=== PATIENT | male | born 1970 | race American Indian/Alaskan Native ===

== ENCOUNTER 2016-03-19 08:01 | Observation (INO) | payer MEDICARE ==
[2016-03-19 09:07] LABS: Basophils % (Auto) 1.3 % (0.0-1.8); Eosinophils % (Auto) 6.7 % (0.0-4.3); Hemoglobin 14.1 gm/dl (11.8-15.2); Mean Corpuscular HGB Conc 34 % (32-34); Mean Corpuscular Hemoglobin 29 pg (28-32); Mean Corpuscular Volume 86 fl (84-94); Platelet Count 266 K/mm3 (140-440); Red Blood Count 4.78 M/mm3 (3.65-5.03); Red Cell Distribution Width 13.3 % (13.2-15.2); White Blood Count 10.6 K/mm3 (4.5-11.0)
[2016-03-19 09:19] LABS: INR 0.9 (0.87-1.13)
[2016-03-19 09:23] LABS: Anion Gap 17 mmol/L; BUN/Creatinine Ratio 12.85; Blood Urea Nitrogen 9 mg/dL (9-20); Calcium 9.1 mg/dL (8.4-10.2); Carbon Dioxide 25 mmol/L (22-30); Glucose 333 mg/dL (75-100); Potassium 4.3 mmol/L (3.6-5.0); Sodium 133 mmol/L (137-145)
[2016-03-19] MEDS ORDERED: ECOTRIN PO ONE (10:15)
[2016-03-19] MEDS ORDERED: NACL 0.9% 500 ML 500 ML IV SCH (10:30)
[2016-03-19] MEDS ORDERED: HEPARIN/NS 5000 UNIT/500ML(CATH LAB) 1,000 ML IR ONE ×2 (10:54→13:36)
[2016-03-19] MEDS ORDERED: HEPARIN 10,000 UNITS/10 ML ONE ×2 (10:54→13:36)
[2016-03-19] MEDS: SUBLIMAZE ONE ×4 (11:03→14:02)
[2016-03-19] MEDS: VERSED ONE ×4 (11:03→14:02)
[2016-03-19] MEDS: XYLOCAINE 2% INFILTRATI ONE ×3 (11:03→13:58)
[2016-03-19] MEDS ORDERED: PLAVIX ONE (11:22)
[2016-03-19] MEDS ORDERED: ALUM-MAG HYDROX-SIMETH 200-200-20MG/5ML ONE (11:22)
[2016-03-19] MEDS ORDERED: HEPARIN/ 0.45% NACL-25,000 UNIT/500 ML 500 ML ONE (11:26)
[2016-03-19] MEDS ORDERED: XYLOCAINE 2% INFILTRATI ONE (13:36)
[2016-03-19] MEDS ORDERED: NITROGLYCERIN SYRINGE 3 ML ONE (13:47)
[2016-03-19] MEDS ORDERED: SUBLIMAZE ONE (14:04)
[2016-03-19] MEDS ORDERED: VERSED ONE (14:04)
[2016-03-19] MEDS: HEPARIN 10,000 UNITS/10 ML ONE ×2 (14:10→14:29)
[2016-03-19] MEDS ORDERED: ZOFRAN IV PRN (14:31)
[2016-03-19] MEDS ORDERED: ULTRAM PO PRN (14:31)
[2016-03-19] MEDS ORDERED: AMBIEN PO PRN (14:31)
[2016-03-19] MEDS ORDERED: SENOKOT PO PRN (14:31)
[2016-03-19] MEDS ORDERED: TYLENOL PO PRN (14:31)
[2016-03-19] MEDS ORDERED: CATAPRES PO PRN (14:36)
--- NOTE | 2016-03-19 14:40 | Event Note ---
Date: 03/19/16 Successful outpatient cath followed by PCI of distal RCA. Admit overnight post PCI, for discharge tomorrow. On discharge: Plavix, Metoprolol and Imdur will be added to home meds.
--- NOTE | 2016-03-19 14:46 | Discharge Summary ---
Short Stay Discharge Plan Activity: advance as tolerated Weight Bearing Status: Partial Weight Bearing Diet: low fat, low cholesterol, low salt, diabetic Wound: keep clean and dry Special Instructions: no heavy lifting (3 days), hold Metformin (48 hrs) Follow up with: DIONISIO BLACKBURN MD [Primary Care Provider] - 7 Days HANG PITTMAN MD [Staff Physician] - 7 Days Prescriptions: Clopidogrel [Plavix] 75 mg PO QDAY #30 tablet ISOSORBIDE MONOnitrate [Imdur ER] 30 mg PO QDAY #30 tablet Metoprolol [Lopressor TAB] 25 mg PO BID #60 tablet
[2016-03-19] MEDS ORDERED: NACL 0.9% 1000 ML 1,000 ML IV SCH (16:00)
--- NOTE | 2016-03-19 16:26 | Cardiac Catherization Report ---
LEFT HEART CATHETERIZATION ORDERING PHYSICIAN: Luz Mccollum MD INDICATION FOR PROCEDURE: Abnormal myocardial perfusion scan, DOT clearance. PROCEDURES PERFORMED: 1. Selective left and right coronary angiography. 2. Left ventriculography. 3. Angiography of the saphenous vein graft to the diagonal artery, saphenous vein graft to the obtuse marginal, and MCCORD graft to the LAD. DESCRIPTION OF PROCEDURE: After obtaining written consent, the patient was draped using sterile technique. A 2% lidocaine was injected into the right groin. A 5-Thai vascular sheath was inserted into the right common femoral artery. A 5-Thai JL4 catheter was used to selectively engage the left coronary artery. A 5-Thai JR4 catheter was used to selectively engage the right coronary artery. A 5-Thai JR4 catheter was used to selectively engage the saphenous vein graft to the obtuse marginal, the saphenous vein graft to the diagonal artery, and the MCCORD graft to the LAD. No complications occurred during the procedure. ESTIMATED BLOOD LOSS: Minimal. SPECIMEN REMOVED: None. FINDINGS: HEMODYNAMICS: Aortic pressure was 142/86. LV systolic pressure was 135 mmHg. LVEDP was measured at 19 mmHg. There was no significant gradient noted across the left ventricular outflow tract. CARDIAC STRUCTURES: The left ventricle is normal in size and systolic function with an ejection fraction estimated at 55%. CORONARY ANATOMY: 1. This is a right dominant circulation. 2. The left main has evidence of a distal 90% stenosis. 3. There is 100% stenosis of the ostium of the LAD. 4. There is 90% stenosis of the ostium of left circumflex artery. The distal left circumflex artery is a small caliber vessel. 5. The right coronary artery is a dominant vessel. The right coronary artery was not bypassed. There is evidence of a 90% focal stenosis of the distal right coronary artery. The posterolateral ventricular branch is a small branch. 6. The saphenous vein graft to the diagonal artery is patent with excellent vessel run-off. 7. The saphenous vein graft to the obtuse marginal is patent with excellent vessel run-off. 8. The MCCORD graft to the LAD is patent with excellent vessel run-off. IMPRESSION: 1. Significant [place] vessel stenosis with a focal 90% lesion noted in a previously not bypassed distal right coronary artery. This corresponds to the patient's abnormality noted on the stress test showing an inferior wall ischemia. 2. Patent saphenous vein graft to the obtuse marginal, patent saphenous vein graft to the diagonal artery, and patent MCCORD graft to the LAD with excellent vessel run-off. 3. Severe [place] vessel disease involving the LAD and the left circumflex artery. 4. Normal left ventricular size and systolic function. 5. LVEDP measured at 90 mmHg. RECOMMENDATIONS: Proceed with PCI to the distal right coronary artery. [facility]# [id number] MONICA/HAO
--- NOTE | 2016-03-19 18:20 | Cardiac Catherization Report ---
CORONARY ANGIOPLASTY REASON FOR PROCEDURE: The patient is a 45-year-old man with coronary artery disease, status post 3-way coronary artery bypass surgery in 2011. He had an outpatient thallium stress test that was abnormal, prompting a cardiac catheterization done earlier today. Cardiac catheterization revealed all his 3-way bypass grafts to be patent, the left internal mammary artery graft to the LAD, saphenous vein graft to the diagonal branch, and saphenous vein graft to the circumflex system. The [place] right coronary artery, which was not previously bypassed, contained a hazy, 95-99% stenosis in its distal AV groove segment, just before the origin of a large posterior left ventricle branch. He was referred for coronary angioplasty of the distal right coronary artery. PROCEDURE: The patient was prepped and draped in a sterile fashion after informed consent. A 6-Azeri sheath was exchanged into the right femoral artery, replacing the 5-Azeri sheath from the diagnostic procedure. We selected a #4 right Monster guiding catheter and advanced to the right coronary ostium. Preintervention angiograms of the right coronary artery were taken. A 0.014 inch Drug Abuse Program Coordinator 50 guidewire was then introduced into the vessel, successfully across the stenotic lesion. We then predilated the stenosis, using a 2.5 mm balloon catheter. Following this, a 2.75 x 12 mm Resolute drug-eluting stent was then deployed across the lesional segment and inflated to optimal pressures. Following stenting, the catheters and the wires were removed, post-intervention angiograms revealed an excellent angiographic result, 0 residual stenosis, and JOVANI 3 flow distal to the lesional segment. The procedure was well tolerated by the patient and have no complications. CONCLUSION: Successful angioplasty and stenting of the distal right coronary artery. A 99% stenosis was treated using a 2.75 x 12 mm drug-eluting stent. Excellent angiographic result and 0 residual stenosis. JOB# [id number] CATHERINE/HAO
[2016-03-19] MEDS: IMDUR PO SCH (22:14)
[2016-03-19] MEDS: LOPRESSOR PO SCH (22:14)
[2016-03-20] MEDS: GLUCOTROL XL PO SCH ×2 (01:13→10:00)
[2016-03-20 06:49] LABS: Basophils % (Auto) 0.3 % (0.0-1.8); Hematocrit 37.4 % (35.5-45.6); Hemoglobin 12.6 gm/dl (11.8-15.2); Mean Corpuscular HGB Conc 34 % (32-34); Mean Corpuscular Hemoglobin 29 pg (28-32); Mean Corpuscular Volume 87 fl (84-94); Platelet Count 270 K/mm3 (140-440); Red Blood Count 4.31 M/mm3 (3.65-5.03); Red Cell Distribution Width 13.3 % (13.2-15.2); White Blood Count 16.4 K/mm3 (4.5-11.0)
[2016-03-20 07:11] LABS: Creatine Kinase MB 2.8 ng/mL (0.0-4.0)
[2016-03-20 07:13] LABS: Anion Gap 19 mmol/L; Blood Urea Nitrogen 16 mg/dL (9-20); Calcium 8.3 mg/dL (8.4-10.2); Carbon Dioxide 23 mmol/L (22-30); Chloride 97.8 mmol/L (98-107); Creatine Kinase 114 units/L (55-170); Glucose 312 mg/dL (75-100); Potassium 4.4 mmol/L (3.6-5.0); Sodium 135 mmol/L (137-145)
[2016-03-20 09:31] VITALS: BP 118/67
[2016-03-20] MEDS: IMDUR PO SCH (09:36)
[2016-03-20] MEDS: LOPRESSOR PO SCH (09:38)
[2016-03-20] MEDS ORDERED: BENAZEPRIL PO SCH (10:00)
[2016-03-20] MEDS ORDERED: BABY ASPIRIN PO SCH (10:00)
[2016-03-20] MEDS ORDERED: ZESTRIL PO SCH (10:00)
[2016-03-20] MEDS ORDERED: AMLODIPINE BESYLATE PO SCH (10:00)
[2016-03-20] MEDS ORDERED: PLAVIX PO SCH (10:00)
[2016-03-20] MEDS ORDERED: NORVASC PO SCH (10:00)
--- NOTE | 2016-03-20 10:34 | XRay Report ---
AP CHEST : 03/20/16 CLINICAL: Post PCI COMPARISON:11/13/15 FINDINGS: Normal heart and pulmonary vessels.Median sternotomy wires. The lungs are normally expanded and clear. The bones and soft tissues are unremarkable. IMPRESSION: No acute cardiopulmonary process.
--- NOTE | 2016-03-20 11:30 | Progress Note ---
Assessment and Plan CAD s/p PCI Plan: DC home today with medical therapy including DAPT Subjective Date of service: 03/20/16 Interval history: No further chest pain. No cardiac complaints. Objective Vital Signs Temp Pulse Pulse Resp BP BP Pulse Ox 03/20/16 09:38 88 118/67 03/20/16 09:37 88 118/67 03/20/16 09:36 88 118/67 03/20/16 09:30 98.4 F 81 18 118/67 96 03/20/16 07:35 98 03/20/16 07:00 81 03/20/16 05:48 98.1 F 87 20 117/59 94 03/20/16 01:02 98.3 F 88 20 116/66 93 03/19/16 23:12 82 03/19/16 22:30 95 03/19/16 21:48 98.2 F 95 H 20 127/76 94 03/19/16 17:54 97.0 F L 94 H 18 97 03/19/16 15:15 95 H 16 117/75 94 03/19/16 14:45 91 H 20 117/73 96 03/19/16 14:29 85 20 112/69 96 03/19/16 13:00 87 20 136/86 95 03/19/16 12:30 88 17 143/84 94 03/19/16 12:15 86 19 139/85 94 03/19/16 12:00 84 20 145/87 96 03/19/16 11:47 98.2 F 86 18 139/88 94 - Physical Examination General: No Apparent Distress Neck: Positive: neck supple Cardiac: Positive: Reg Rate and Rhythm Lungs: Positive: clear to auscultation Neuro: Positive: Grossly Intact Abdomen: Positive: Soft Incision: Cardiac Cath Site (no bleeding or hematoma) Extremities: Absent: edema - Labs and Meds Cardiac Enzymes 03/20/16 Range/Units 06:08 CK-MB (CK-2) 2.8 (0.0-4.0) ng/mL CBC 03/20/16 Range/Units 06:08 WBC 16.4 H (4.5-11.0) K/mm3 RBC 4.31 (3.65-5.03) M/mm3 Hgb 12.6 (11.8-15.2) gm/dl Hct 37.4 (35.5-45.6) % Plt Count 270 (140-440) K/mm3 Lymph # 1.6 (1.2-5.4) K/mm3 [place] # 0.6 (0.0-0.8) K/mm3 Eos # 0.0 (0.0-0.4) K/mm3 Baso # 0.1 (0.0-0.1) K/mm3 Comprehensive Metabolic Panel 03/20/16 Range/Units 06:08 Sodium 135 L (137-145) mmol/L Potassium 4.4 (3.6-5.0) mmol/L Chloride 97.8 L (98-107) mmol/L Carbon Dioxide 23 (22-30) mmol/L BUN 16 (9-20) mg/dL Creatinine 0.8 (0.8-1.5) mg/dL Glucose 312 H (75-100) mg/dL Calcium 8.3 L (8.4-10.2) mg/dL
== END 2016-03-20 11:00 | disposition home or self-care (01) ==
LOC: OPU 08:01 → 4A 14:31
PROVIDERS: ADMIT Internal Medicine Cardiovascular Disease; ATTEND Internal Medicine
DX: I25.810 Atherosclerosis of coronary artery bypass graft(s) without angina pectoris (principal); I10 Essential (primary) hypertension; E11.9 Type 2 diabetes mellitus without complications; F17.200 Nicotine dependence, unspecified, uncomplicated; Z83.3 Family history of diabetes mellitus
CPT/HCPCS: 36415; 71010; 80048; 82550; 82553; 82962; 84484; 85025; 85347; 85610; 85730; 93005; 93010; 93459; 96372; C1725; C1760; C1769; C1874; C1887; C1894; C9600; G0378; J1644; J2250; J2930; J3010; J7030; J7040; 92928; J1815; Q9967

== ENCOUNTER 2016-03-21 10:56 | Observation (INO) | payer MEDICARE ==
[2016-03-21 11:24] LABS: Basophils % (Auto) 1.1 % (0.0-1.8); Eosinophils % (Auto) 3.6 % (0.0-4.3); Hematocrit 39.6 % (35.5-45.6); Mean Corpuscular HGB Conc 33 % (32-34); Mean Corpuscular Hemoglobin 29 pg (28-32); Mean Corpuscular Volume 87 fl (84-94); Platelet Count 243 K/mm3 (140-440); Red Blood Count 4.54 M/mm3 (3.65-5.03); Red Cell Distribution Width 13.5 % (13.2-15.2); White Blood Count 11.1 K/mm3 (4.5-11.0)
[2016-03-21] MEDS ORDERED: NITROSTAT SL ONE (11:29)
[2016-03-21 11:33] LABS: INR 0.9 (0.87-1.13)
[2016-03-21] MEDS: NITROSTAT SL PRN ×3 (11:35→11:45)
[2016-03-21 11:40] LABS: Anion Gap 16 mmol/L; Blood Urea Nitrogen 12 mg/dL (9-20); Calcium 8.5 mg/dL (8.4-10.2); Carbon Dioxide 27 mmol/L (22-30); Chloride 97.2 mmol/L (98-107); Glucose 392 mg/dL (75-100); Sodium 136 mmol/L (137-145)
--- NOTE | 2016-03-21 11:53 | XRay Report ---
Single view chest: Compared to 03/20/16. History: Chest pain. Findings: Heart size is upper limit of normal. Trachea is midline. No consolidation, pneumothorax or pleural effusion. Ration: No acute cardiopulmonary findings.
--- NOTE | 2016-03-21 12:20 | Emergency Department Report ---
ED Chest Pain HPI - General Chief Complaint: Chest Pain Stated Complaint: CHEST PAIN Time Seen by Provider: 03/21/16 11:24 Source: patient, EMS Mode of arrival: Stretcher Limitations: No Limitations - History of Present Illness Initial Comments: 45-year-old male presents to the emergency department via EMS complaining of chest pain. Patient reports the onset of midsternal chest pain at approximately 9 AM this morning. Pain does not radiate. He reports associated shortness of breath and diaphoresis. There was no nausea, vomiting, or lightheadedness. Pain was described as dull in nature. Patient reports that he underwent stent placement 2 days ago at this facility. He reports he had similar pain a couple of years ago when one his cardiac stents collapsed. Patient was given 324 mg of aspirin and 0.4 mg of sublingual nitroglycerin by EMS. Patient reports his pain was initially had a 5, but currently is at a 3. There are no other complaints. MD Complaint: chest pain -: Sudden, This morning Time: 09:00 Onset: during rest Pain Location: substernal Pain Radiation: none Severity: moderate Severity scale (0 -10): 3 Quality: dull Consistency: constant Improves With: nitroglycerin Worsens With: nothing Context: recent surgery, new medications re: diaphoresis, dyspnea. denies: nausea, vomting Treatments Prior to Arrival: aspirin, nitroglycerin Aspirin use within the Past 7 Days: (1) Yes - Related Data Home Medications Medication Instructions Recorded Confirmed Last Taken Aspirin [Aspirin BABY CHEW TAB] 81 mg PO DAILY 06/25/13 03/21/16 1 Day Ago Atorvastatin [Lipitor] 40 mg PO DAILY 04/15/14 03/21/16 1 Day Ago glipiZIDE [glipiZIDE ER] 5 mg PO BID 04/15/14 03/21/16 1 Day Ago Amlodipine Besylate/Benazepril 2 cap PO DAILY 03/19/16 03/21/16 1 Day Ago [Amlodipine-Benazepril 5-20 mg] Previous Rx's Medication Instructions Recorded Last Taken Type Clopidogrel [Plavix] 75 mg PO QDAY #30 tablet 03/19/16 1 Day Ago Rx ISOSORBIDE MONOnitrate [Imdur ER] 30 mg PO QDAY #30 tablet 03/19/16 1 Day Ago Rx Metoprolol [Lopressor TAB] 25 mg PO BID #60 tablet 03/19/16 1 Day Ago Rx Allergies Allergy/AdvReac Type Severity Reaction Status Date / Time shellfish derived Allergy Severe Swelling Verified 03/19/16 08:43 JOVANI score - Jovani Score Age > 65: (0) No Aspirin use within the Past 7 Days: (1) Yes 3 or more CAD Risk Factors: (1) Yes 2 or more Angina events in past 24 hrs: (0) No Known CAD with more than 50% Stenosis: (1) Yes Elevated Cardiac Markers: (0) No ST Deviation Greater than 0.5mm: (0) No JOVANI Score: 3 ED Review of Systems ROS: Stated complaint: CHEST PAIN Other details as noted in HPI Comment: All other systems reviewed and negative Constitutional: diaphoresis Respiratory: shortness of breath Cardiovascular: chest pain ED Past Medical Hx - Past Medical History Previous Medical History?: Yes Hx Hypertension: Yes Hx Heart Attack/AMI: Yes Hx Congestive Heart Failure: No Hx Diabetes: Yes Hx GERD: Yes Hx Renal Disease: Yes (stones) Hx Asthma: No Hx COPD: No Additional medical history: CAD. DDD - Surgical History Past Surgical History?: Yes Hx Coronary Stent: Yes (2010 IFTIKHAR/ 03/19/2016) Hx Open Heart Surgery: Yes Hx Cholecystectomy: Yes Additional Surgical History: Triple bypass - Family History Family history: diabetes, hypertension - Social History Smoking Status: Former Smoker Substance Use Type: None - Medications Home Medications: Home Medications Medication Instructions Recorded Confirmed Last Taken Type Aspirin [Aspirin BABY CHEW TAB] 81 mg PO DAILY 06/25/13 03/21/16 1 Day Ago History Atorvastatin [Lipitor] 40 mg PO DAILY 04/15/14 03/21/16 1 Day Ago History glipiZIDE [glipiZIDE ER] 5 mg PO BID 04/15/14 03/21/16 1 Day Ago History Amlodipine Besylate/Benazepril 2 cap PO DAILY 03/19/16 03/21/16 1 Day Ago History [Amlodipine-Benazepril 5-20 mg] Clopidogrel [Plavix] 75 mg PO QDAY #30 tablet 03/19/16 03/21/16 1 Day Ago Rx ISOSORBIDE MONOnitrate [Imdur ER] 30 mg PO QDAY #30 tablet 03/19/16 03/21/16 1 Day Ago Rx Metoprolol [Lopressor TAB] 25 mg PO BID #60 tablet 03/19/16 03/21/16 1 Day Ago Rx ED Physical Exam - General Limitations: No Limitations General appearance: alert, in no apparent distress - Head Head exam: Present: atraumatic, normocephalic - Eye Eye exam: Present: normal appearance, PERRL, EOMI - ENT ENT exam: Present: normal exam, normal orophraynx, mucous membranes moist - Neck Neck exam: Present: normal inspection, full ROM. Absent: tenderness - Respiratory Respiratory exam: Present: normal lung sounds bilaterally. Absent: respiratory distress - Cardiovascular Cardiovascular Exam: Present: regular rate, normal rhythm, normal heart sounds - GI/Abdominal GI/Abdominal exam: Present: soft, normal bowel sounds. Absent: distended, tenderness - Extremities Exam Extremities exam: Present: normal inspection, full ROM. Absent: tenderness - Back Exam Back exam: Present: normal inspection, full ROM. Absent: tenderness - Neurological Exam Neurological exam: Present: alert, oriented X3. Absent: motor sensory deficit - Skin Skin exam: Present: warm, dry, intact ED Course Vital Signs 03/21/16 03/21/16 03/21/16 10:58 11:08 11:35 Temperature 97.9 F Pulse Rate 77 79 Respiratory 10 L 10 L Rate Blood Pressure 157/81 142/83 Blood Pressure 157/81 [Right] O2 Sat by Pulse 98 98 Oximetry 03/21/16 03/21/16 11:40 11:45 Temperature Pulse Rate 84 87 Respiratory Rate Blood Pressure 122/76 108/67 Blood Pressure [Right] O2 Sat by Pulse Oximetry ED Medical Decision Making - Lab Data Result diagrams: 03/21/16 11:07 03/21/16 11:07 - EKG Data -: EKG Interpreted by Mn EKG shows normal: sinus rhythm, axis, intervals, QRS complexes, ST-T waves Rate: normal - EKG Data When compared to previous EKG there are: previous EKG unavailable Interpretation: normal EKG - Radiology Data Radiology results: report reviewed Chest x-ray shows no acute cardiopulmonary abnormality. - Medical Decision Making Lab and imaging results reviewed and discussed with the patient. I have spoken with Dr. Louie, cardiology. Patient is to be admitted by the hospitalist for serial cardiac enzymes. - Differential Diagnosis chest pain, ACS, chest wall pain, anxiety Critical care attestation.: If time is entered above; I have spent that time in minutes in the direct care of this critically ill patient, excluding procedure time. ED Disposition Clinical Impression: Chest pain Qualifiers: Chest pain type: precordial chest pain Qualified Code(s): R07.2 - Precordial pain Disposition: OP ADMITTED IP TO THIS HOSP Is pt being admited?: Yes Condition: Stable Instructions: Chest Pain (ED) Time of Disposition: 12:37
[2016-03-21] MEDS ORDERED: D50W (25GM) IV PRN (13:40)
[2016-03-21] MEDS ORDERED: AMLODIPINE BESYLATE PO SCH (13:45)
[2016-03-21] MEDS ORDERED: BENAZEPRIL PO SCH (13:45)
[2016-03-21] MEDS ORDERED: LOPRESSOR PO SCH (14:00)
[2016-03-21] MEDS: LOVENOX SUB-Q SCH (15:04)
[2016-03-21] MEDS: PLAVIX PO SCH (15:06)
[2016-03-21] MEDS: LOPRESSOR PO SCH ×2 (15:06→23:14)
[2016-03-21 15:43] LABS: Creatine Kinase MB 2.8 ng/mL (0.0-4.0)
[2016-03-21 15:45] LABS: Alanine Aminotransferase 31 units/L (7-56); Albumin 3.6 g/dL (3.9-5); Alkaline Phosphatase 115 units/L (35-129); Anion Gap 16 mmol/L; BUN/Creatinine Ratio 17.14; Bilirubin,Total 0.2 mg/dL (0.1-1.2); Blood Urea Nitrogen 12 mg/dL (9-20); Calcium 8.6 mg/dL (8.4-10.2); Carbon Dioxide 25 mmol/L (22-30); Chloride 100.1 mmol/L (98-107); Creatine Kinase 147 units/L (55-170); Glucose 302 mg/dL (75-100); Potassium 3.9 mmol/L (3.6-5.0); Sodium 137 mmol/L (137-145); Total Protein 7.3 g/dL (6.3-8.2)
[2016-03-21] MEDS: NOVOLOG SUB-Q SCH ×2 (17:09→23:14)
[2016-03-21 21:02] LABS: Creatine Kinase MB 2.3 ng/mL (0.0-4.0)
--- NOTE | 2016-03-21 23:29 | History and Physical Report ---
History of Present Illness Date of examination: 03/21/16 Date of admission: 03/21/16 12:39 Chief complaint: Chest pain - one day duration History of present illness: Patient is a 45-year-old gentleman who has a history of coronary artery disease , status post PCI, CABG 3, diabetes mellitus and hypertension was having chest pain at rest today. Patient was 5-6/10 in severity, nonradiating. Associated with shortness of breath. No diaphoresis. No palpitations. Denies any orthopnea or paroxysmal nocturnal dyspnea. Came to the emergency department where initial set of cardiac enzymes were normal. Blood sugar found to be elevated. Admission was therefore requested. Past History Past Medical History: CAD, diabetes, hypertension, hyperlipidemia Past Surgical History: cholecystectomy Social history: denies: smoking, alcohol abuse, IV drug use Medications and Allergies Allergies Allergy/AdvReac Type Severity Reaction Status Date / Time shellfish derived Allergy Severe Swelling Verified 03/19/16 08:43 Home Medications Medication Instructions Recorded Confirmed Last Taken Type Aspirin [Aspirin BABY CHEW TAB] 81 mg PO DAILY 06/25/13 03/21/16 1 Day Ago History Atorvastatin [Lipitor] 40 mg PO DAILY 04/15/14 03/21/16 1 Day Ago History glipiZIDE [glipiZIDE ER] 5 mg PO BID 04/15/14 03/21/16 1 Day Ago History Amlodipine Besylate/Benazepril 2 cap PO DAILY 03/19/16 03/21/16 1 Day Ago History [Amlodipine-Benazepril 5-20 mg] Clopidogrel [Plavix] 75 mg PO QDAY #30 tablet 03/19/16 03/21/16 1 Day Ago Rx ISOSORBIDE MONOnitrate [Imdur ER] 30 mg PO QDAY #30 tablet 03/19/16 03/21/16 1 Day Ago Rx Metoprolol [Lopressor TAB] 25 mg PO BID #60 tablet 03/19/16 03/21/16 1 Day Ago Rx Active Meds: Active Medications Amlodipine Besylate (Norvasc) 10 mg PO DAILY LEAH Atorvastatin Calcium (Lipitor) 40 mg PO DAILY LEAH Clopidogrel Bisulfate (Plavix) 75 mg PO QDAY LEAH Last Admin: 03/21/16 15:06 Dose: 75 mg Dextrose (D50w (25gm)) 50 ml IV PRN PRN PRN Reason: Hypoglycemia Enoxaparin Sodium (Lovenox) 40 mg SUB-Q QDAY [facility] Last Admin: 03/21/16 15:04 Dose: 40 mg Insulin Aspart (Novolog) 0 units SUB-Q ACHS [facility] PRN Reason: Protocol Last Admin: 03/21/16 23:14 Dose: 6 units Lisinopril (Zestril) 40 mg PO QDAY [facility] Metoprolol Tartrate (Lopressor) 25 mg PO BID [facility] Last Admin: 03/21/16 23:14 Dose: 25 mg Nitroglycerin (Nitrostat) 0.4 mg SL .Q5MIN PRN PRN Reason: Chest Pain Last Admin: 03/21/16 11:45 Dose: 0.4 mg Review system Constitutional: Well Nouridhed and Well developed. Head: NC/ AT Eyes: Denies any visual impairments. No discharge from the eyes Nose: Denies any rhinorrhea or epistaxis Throats: Denies any post nasal drainage. Ears: Denies any hearing deficits Cardiovascular system: Complains of chest pain, denies shortness of breath, orthopnea, paroxysmal nocturnal dyspnea, or palpitation. Respiratory system: Denies any cough, difficulty breathing, wheezing, pleuritic chest pain, Gastrointestinal system: Denies any abdominal pain, nausea vomiting, hematemesis or melena. Neurological system: Denies any headache, slurred speech, facial droop, lateralizing weakness Genitalia system: Denies any dysuria, urinary frequency or urgency, urethral discharge Skin: No rashes, hyperpigmented spots. Hematological: Denies any cervical tenderness hemorrhages or petechia. Immunological: Denies any multiple septic spots, Lymphatic: Denies any generalized lymphadenopathy. Endocrine: Denies any polyuria, polydipsia, polyphagia. No heat or cold intolerance. Exam - Constitutional Vitals: Temp Pulse Resp BP Pulse Ox 98.4 F 71 20 122/70 97 03/21/16 20:00 03/21/16 23:14 03/21/16 21:24 03/21/16 23:14 03/21/16 20:58 General appearance: Present: no acute distress, well-nourished - EENT Eyes: Present: PERRL ENT: hearing intact, clear oral mucosa - Neck Neck: Present: supple, normal ROM - Respiratory Respiratory effort: normal Respiratory: bilateral: CTA - Cardiovascular Heart Sounds: Present: S1 & S2. Absent: rub, click - Extremities Extremities: pulses symmetrical, No edema Peripheral Pulses: within normal limits - Abdominal General gastrointestinal: Present: soft, non-tender, non-distended, normal bowel sounds Male genitourinary: Present: normal - Integumentary Integumentary: Present: clear, warm, dry - Musculoskeletal Musculoskeletal: gait normal, strength equal bilaterally - Psychiatric Psychiatric: appropriate mood/affect, intact judgment & insight - Neurologic Neurologic: CNII-XII intact, moves all extremities Results - Labs CBC & Chem 7: 03/21/16 11:07 03/21/16 14:56 Labs: Abnormal lab results 03/21/16 03/21/16 03/21/16 Range/Units 14:56 14:56 15:03 Creatinine 0.7 L (0.8-1.5) mg/dL Glucose 302 H (75-100) mg/dL POC Glucose (70-105) Hemoglobin A1c 12.7 H (4-6) % Albumin 3.6 L (3.9-5) g/dL Triglycerides 258 H (2-149) mg/dL LDL Cholesterol Direct 47 L (50-130) mg/dL HDL Cholesterol 33 L (40-59) mg/dL Urine Creatinine (0.1-20.0) mg/dL 03/21/16 03/21/16 03/21/16 Range/Units 16:39 17:11 21:25 Creatinine (0.8-1.5) mg/dL Glucose (75-100) mg/dL POC Glucose 280 H 330 H (70-105) Hemoglobin A1c (4-6) % Albumin (3.9-5) g/dL Triglycerides (2-149) mg/dL LDL Cholesterol Direct (50-130) mg/dL HDL Cholesterol (40-59) mg/dL Urine Creatinine 82.4 H (0.1-20.0) mg/dL Assessment and Plan Assessment 1. Atypical Chest pain 2. Coronary artery disease status post CABG 3. Diabetes mellitus 4. Hypertension Plan Admit to telemetry, Serial cardiac enzymes, commenced pt on oxygen, nitroglycerin, aspirin and morphine. Stress thallium second serial cardiac enzymes are normal. Cardiology consult because of history of carotid disease status post PCI and CABG Consistent fiber diet, sliding scale insulin, A1c Optimize blood pressure control with marya beta michael DVT prophylaxis with Lovenox, GI prophylaxis with Pepcid. Fentanyl 1 minutes in direct patient care review of medical records, radiology and laboratory data , and explanation of care plan
[2016-03-22 03:07] LABS: Creatine Kinase MB 1.9 ng/mL (0.0-4.0)
[2016-03-22] MEDS ORDERED: ZESTRIL PO SCH (10:00)
[2016-03-22] MEDS ORDERED: NORVASC PO SCH (10:00)
[2016-03-22] MEDS: LOPRESSOR PO SCH (10:42)
[2016-03-22] MEDS: PLAVIX PO SCH (10:42)
[2016-03-22] MEDS: LOVENOX SUB-Q SCH (10:43)
[2016-03-22] MEDS: NOVOLOG SUB-Q SCH (10:43)
[2016-03-22 11:56] VITALS: BP 121/70
--- NOTE | 2016-03-22 13:24 | Admit Criteria Form ---
Admission Criteria Documentation: CHEST PAIN Clinical Indications for Admission to Inpatient Care (Place 'X' for any and all applicable criteria): Admission is indicated for chest pain and ANY ONE of the following(1)(2)(3)(4)(5 ): [ ]I. Angina with acute coronary syndrome (Also use Myocardial Infarction or Angina guideline) [ ]II. Hemodynamic instability [X ]III. Angina needing acute intervention as indicated by ALL of the following (11)(12): [X ]a) Unstable angina is present as indicated by angina that is ANY ONE of the following: [ ]i) New onset [ ]ii) Nocturnal [ X]iii) Prolonged at rest [ ]iv) Progressive [X ]b) Angina warrants acute intervention as indicated by ANY ONE of the following: [ ]i) Recurrent angina (e.g, not responding as previously to treatment) [X ]ii) Angina at rest or with low-level activities despite initial medical therapy [ ]iii) New or presumably new ST-segment depression on ECG [ ]iv) Signs or symptoms of heart failure (eg, dyspnea, pulmonary edema) [ ]v) New or worsening mitral regurgitation [ ]vi) Hemodynamic instability [ ]vii) Dangerous arrhythmia (eg, sustained ventricular tachycardia) [ X]viii) History of percutaneous coronary intervention within 6 months [ ]ix) History of coronary artery bypass graft surgery [X ]x) JOVANI risk score of 2 or greater[A] [X]xi) History of Diabetes(14) [ ]xii) High-risk cardiac ischemia findings on noninvasive testing (e.g, echocardiogram, treadmill testing, nuclear scan) [ ]xiii) Chronic renal insufficiency (ie, estimated GFR less than 60 mL/min/1.732m) [ ]xiv) Left ventricular ejection fraction less than 40% [ ]IV. Evidence of VA (eg, cardiac biomarkers positive, ST-segment elevation on ECG) also use Myocardial Infarction Criteria Form. [ ]V. Pulmonary edema [ ]. Respiratory distress [ ]VII. Chest pain indicative of serious diagnosis other than coronary artery disease (eg, aortic dissection) [ ]VIII. Contraindications and/or Inappropriate clinical situations for Observational Care in patients with Chest Pain, when ANY ONE of the following is required: [ ]a) Patient with risk factor for pulmonary embolism, acute coronary syndrome and myocardial infarction (18) [ ]b) Patient with Pulmonary embolism require an average LOS of 4.3 days, therefore emergency department observation management is inappropriate 18,23 [ ]c) Painful condition/s in the elderly, have the highest rate of recidivism after emergency department observation management (10.8%) 20,21,22 [ ]d) Elevated cardiac biomarker requires intensive and exhaustive care (19) [ ]IX. General contraindications and/or Inappropriate clinical situations for Observational Care in patients with Chest Pain, when ANY ONE of the following is required: [ ]a) Prediction of prolongation of LOS based on ANY ONE of the following may be considered as a contraindication for observational care 2, 3, 4, 5, 6, 7, 8, 9, 10, 11 [ ]i) Age > 65 yrs. [ ]ii) Patient arriving by ambulance [ ]iii) Patient with high acuity [ ]iv) Patient requiring vital sign monitoring [ ]v) Patient on IV medication [ ]b) Systolic blood pressures 180mmHg 3,12 [ ]c) Patient with altered mental status including delirium and other alteration of consciousness, (3) [ ]d) Patient whose discharge disposition will be to a fpc home or rehabilitation home should not be managed in Emergency Department Observation Unit. CMS rule requires 3 days hospital stay before such placement. 3,13 [ ]e) Patient with failure to thrive due to broad array of etiologies 3,16,17 [ ]f) Inability to ambulate 3,14 Extended stay beyond goal length of stay may be needed for (1)(28): [ ]a) Specific condition diagnosed after evaluation (eg, pulmonary embolism, aortic dissection) [ ]b) Unstable angina [ ]c) Continued suspicion of acute coronary syndrome with inability to complete needed cardiac evaluation (eg, patient clinically unable to undergo stress testing) [ ]d) Myocardial infarction (Contents from ANGINA and CHEST PAIN clinical indications for admission to inpatient care have been integrated in this form) The original [employer] content created by [employer] has been revised. The portions of the content which have been revised are identified through the use of italic text or in bold, and [email or web address] has neither reviewed nor approved the modified material. All other unmodified content is copyright [email or web address]. Please see references footnoted in the original [email or web address] edition 2016 Admission Criteria Met: Yes
--- NOTE | 2016-03-22 13:38 | Discharge Summary ---
Providers - Providers Date of Admission: 03/21/16 12:39 Date of discharge: 03/22/16 Attending physician: YURY DIOP 03/21/16 13:34 Consult to Physician [CONS] Routine Consulting Provider: PAO SAINI Reason For Exam: chest pain, CAD, elevated [address] consult to:: Liban Notified:: PLEASE CALL MD IN AM Was contact made?: No 03/21/16 13:41 Consult to Dietitian/Nutrition [CONS] Routine Physician Instructions: Reason For Exam: Reason for Consult: Diet education Primary care physician: DIONISIO BLACKBURN Hospitalization Condition: Stable Hospital course: Patient is a 45-year-old gentleman who has a history of coronary artery disease , status post PCI 2 days ago, CABG 3, diabetes mellitus and hypertension was having chest pain at rest with 5-6/10 in severity, nonradiating, Associated with shortness of breath. In the emergency department initial set of cardiac enzymes were normal. Blood sugar found to be elevated. Admission was therefore requested. He was monitored with serial CE and EKG. Dr Lam evaluated the patient and recommended medical management. Patient was discharged back home in stable condition. Discharge Diagnosis: 1. Chest pain, likley due to CAD, placed on imdur 2. Coronary artery disease status post CABG and recent stent placement 3. Diabetes mellitus type 2 4. Hypertension Disposition: DISCHARGED TO HOME OR SELFCARE Time spent for discharge: 32 minutes Core Measure Documentation - Palliative Care Palliative Care/ Comfort Measures: Not Applicable - Core Measures Any of the following diagnoses?: none Exam - Constitutional Vitals: Temp Pulse Resp BP Pulse Ox 98.1 F 71 18 121/70 96 03/22/16 07:21 03/22/16 11:51 03/22/16 11:51 03/22/16 11:51 03/22/16 11:51 General appearance: Present: no acute distress - EENT Eyes: Present: EOM intact ENT: clear oral mucosa - Neck Neck: Present: supple, normal ROM - Respiratory Respiratory effort: normal Respiratory: bilateral: CTA - Cardiovascular Rhythm: regular Heart Sounds: Present: S1 & S2 - Extremities Extremities: no ischemia, No edema Peripheral Pulses: within normal limits - Abdominal General gastrointestinal: Present: soft, non-tender, non-distended, normal bowel sounds - Integumentary Integumentary: Present: warm, dry - Musculoskeletal Musculoskeletal: strength equal bilaterally - Psychiatric Psychiatric: appropriate mood/affect - Neurologic Neurologic: no focal deficits Plan Activity: advance as tolerated Weight Bearing Status: Non-Weight Bearing Diet: low cholesterol, low salt, diabetic Follow up with: DIONISIO BLACKBURN MD [Primary Care Provider] - 3-5 Days
[2016-03-22 14:20] LABS: Alanine Aminotransferase 31 units/L (7-56); Albumin 3.3 g/dL (3.9-5); Albumin/Globulin Ratio 0.9 %; Alkaline Phosphatase 109 units/L (35-129); Anion Gap 15 mmol/L; BUN/Creatinine Ratio 11.42; Bilirubin,Total 0.3 mg/dL (0.1-1.2); Blood Urea Nitrogen 8 mg/dL (9-20); Calcium 8.3 mg/dL (8.4-10.2); Carbon Dioxide 26 mmol/L (22-30); Chloride 97.3 mmol/L (98-107); Glucose 294 mg/dL (75-100); Potassium 4.2 mmol/L (3.6-5.0); Sodium 134 mmol/L (137-145); Total Protein 6.9 g/dL (6.3-8.2)
--- NOTE | 2016-03-22 14:38 | Consultation ---
History of Present Illness Consult date: 03/22/16 Consult reason: chest pain History of present illness: The patient's a 45-year-old man with coronary artery disease, status post three- way coronary artery bypass in 2011. 3 days ago, cardiac catheterization done for an abnormal outpatient stress test, revealed all 3 grafts to be patent. There was a focal, 90% stenosis of distal right coronary artery which was not previously bypassed. This de vivian stenosis was successfully treated using a 2.5 mm drug-eluting stent. The patient was discharged home on Plavix and aspirin, and represented the next day after discharge with left-sided chest pain which was poorly characterized and nonexertional. Since his admission here there has been no further chest pain. The serial ECGs showed normal sinus rhythm normal ECG. No ST or T-wave abnormalities. The cardiac isoenzymes were normal. Past History Past Medical History: CAD, diabetes, hypertension, hyperlipidemia Past Surgical History: cholecystectomy, CABG Social history: denies: smoking, alcohol abuse, IV drug use Medications and Allergies Allergies Allergy/AdvReac Type Severity Reaction Status Date / Time shellfish derived Allergy Severe Swelling Verified 03/19/16 08:43 Home Medications Medication Instructions Recorded Confirmed Last Taken Type Aspirin [Aspirin BABY CHEW TAB] 81 mg PO DAILY 06/25/13 03/21/16 1 Day Ago History Atorvastatin [Lipitor] 40 mg PO DAILY 04/15/14 03/21/16 1 Day Ago History glipiZIDE [glipiZIDE ER] 5 mg PO BID 04/15/14 03/21/16 1 Day Ago History Amlodipine Besylate/Benazepril 2 cap PO DAILY 03/19/16 03/21/16 1 Day Ago History [Amlodipine-Benazepril 5-20 mg] Clopidogrel [Plavix] 75 mg PO QDAY #30 tablet 03/19/16 03/21/16 1 Day Ago Rx ISOSORBIDE MONOnitrate [Imdur ER] 30 mg PO QDAY #30 tablet 03/19/16 03/21/16 1 Day Ago Rx Metoprolol [Lopressor TAB] 25 mg PO BID #60 tablet 03/19/16 03/21/16 1 Day Ago Rx Review of Systems Cardiovascular: chest pain, no orthopnea, no palpitations, no rapid/irregular heart beat, no edema, no syncope, no lightheadedness, no shortness of breath Physical Examination Vital Signs Pulse Ox 96 01/29/17 10:56 General appearance: no acute distress HEENT: Positive: PERRL Neck: Positive: neck supple Cardiac: Positive: Reg Rate and Rhythm Lungs: Positive: clear to auscultation Neuro: Positive: Grossly Intact Abdomen: Positive: Soft Male genitourinary: Positive: deferred Skin: Positive: Clear Extremities: Absent: edema Results 03/21/16 11:07 03/22/16 13:34 Cardiac Enzymes 03/21/16 03/21/16 03/22/16 Range/Units 14:56 20:21 02:29 AST 17 (5-40) units/L CK-MB (CK-2) 2.8 2.3 1.9 (0.0-4.0) ng/mL 03/22/16 Range/Units 13:34 AST 23 (5-40) units/L CK-MB (CK-2) (0.0-4.0) ng/mL Lipids 03/21/16 Range/Units 14:56 Triglycerides 258 H (2-149) mg/dL Cholesterol 131 (50-199) mg/dL HDL Cholesterol 33 L (40-59) mg/dL Cholesterol/HDL Ratio 3.96 % Comprehensive Metabolic Panel 03/21/16 03/22/16 Range/Units 14:56 13:34 Sodium 137 134 L (137-145) mmol/L Potassium 3.9 4.2 (3.6-5.0) mmol/L Chloride 100.1 97.3 L (98-107) mmol/L Carbon Dioxide 25 26 (22-30) mmol/L BUN 12 8 L (9-20) mg/dL Creatinine 0.7 L 0.7 L (0.8-1.5) mg/dL Glucose 302 H 294 H (75-100) mg/dL Calcium 8.6 8.3 L (8.4-10.2) mg/dL AST 17 23 (5-40) units/L ALT 31 31 (7-56) units/L Alkaline Phosphatase 115 109 (35-129) units/L Total Protein 7.3 6.9 (6.3-8.2) g/dL Albumin 3.6 L 3.3 L (3.9-5) g/dL EKG interpretations - Telemetry EKG Rhythm: Sinus Rhythm Assessment and Plan - Patient Problems (1) Chest pain Status: Acute Qualifiers: Chest pain type: precordial chest pain Qualified Code(s): R07.2 - Precordial pain Plan to address problem: The patient presented to the hospital with chest pain, one day after successful coronary stent placement to the distal right coronary artery. There is no EKG or laboratory evidence of acute or subacute stent thrombosis. The patient is stable for cardiac discharge, to continue aspirin and Plavix at home, add long-acting oral nitrates to his regimen, and he should follow-up with her cardiac office within a week of discharge.
== END 2016-03-22 14:32 | disposition home or self-care (01) ==
LOC: ED 10:56 → 4A 12:39
PROVIDERS: ADMIT Family Medicine; ATTEND Internal Medicine
DX: I25.810 Atherosclerosis of coronary artery bypass graft(s) without angina pectoris (principal); I10 Essential (primary) hypertension; E11.9 Type 2 diabetes mellitus without complications; E78.5 Hyperlipidemia, unspecified; Z83.3 Family history of diabetes mellitus; Z87.891 Personal history of nicotine dependence; Z90.49 Acquired absence of other specified parts of digestive tract
CPT/HCPCS: 36415; 71010; 80048; 80053; 80061; 82043; 82550; 82553; 82962; 83036; 84484; 85025; 85610; 85730; 93005; 93010; 96372; 99285; A9270; G0378; J1650; J1815

== ENCOUNTER 2018-05-06 00:25 | Inpatient (IN) | payer MEDICARE ==
[2018-05-06] MEDS ORDERED: NACL 0.9% 1000 ML 1,000 ML IV ONE (01:21)
[2018-05-06 01:51] LABS: Hematocrit 43.5 % (35.5-45.6); Hemoglobin 14.6 gm/dl (11.8-15.2); Mean Corpuscular HGB Conc 34 % (32-34); Mean Corpuscular Volume 87 fl (84-94); Platelet Count 280 K/mm3 (140-440); Red Blood Count 4.98 M/mm3 (3.65-5.03); Red Cell Distribution Width 13.6 % (13.2-15.2)
[2018-05-06 02:34] LABS: Alanine Aminotransferase 46 units/L (7-56); BUN/Creatinine Ratio 12; Blood Urea Nitrogen 11 mg/dL (9-20); Calcium 9.3 mg/dL (8.4-10.2); Hemolysis Index 15
[2018-05-06 04:21] LABS: Bilirubin,Urine NEG (Negative); Blood,Urine NEG (Negative); Color,Urine Yellow (Yellow); Urobilinogen,Urine < 2.0 mg/dL (<2.0); WBC,Urine < 1.0 /HPF (0.0-6.0)
[2018-05-06] MEDS ORDERED: ZOFRAN ONE (04:34)
[2018-05-06] MEDS ORDERED: MORPHINE ONE (04:34)
[2018-05-06] MEDS ORDERED: MORPHINE IV ONE (05:04)
[2018-05-06] MEDS ORDERED: ZOFRAN IV ONE (05:05)
--- NOTE | 2018-05-06 05:11 | Emergency Department Report ---
<CRISTALPEDRITO - Last Filed: 05/06/18 05:12> ED Abdominal Pain HPI - General Chief Complaint: Abdominal Pain Stated Complaint: ABD PAIN Time Seen by Provider: 05/06/18 05:04 Source: patient, family Mode of arrival: Ambulatory Limitations: No Limitations - History of Present Illness Initial Comments: Mr. Lamar is a very pleasant 47-year-old male with history of diabetes, coronary artery disease who presents with a "stomach bug". Since 8 PM this evening he's had subjective fevers chills epigastric pain nausea vomiting diar redd. Multiple household contacts with stomach virus type symptoms. 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 Epigastric pain cramping no radiation. Improved with medications provided in the ED. History of cholecystectomy, history of triple bypass surgery MD Complaint: abdominal pain -: Gradual Location: epigastric Radiation: none Severity: moderate Severity scale (0 -10): 8 Quality: cramping Consistency: constant Improves With: medication Worsens With: nothing Context: possible food poisoning, sick contacts Associated Symptoms: nausea, vomiting, diarrhea, fever, chills - Related Data Home Medications Medication Instructions Recorded Confirmed Last Taken Aspirin [Aspirin BABY CHEW TAB] 81 mg PO DAILY 06/25/13 03/21/16 1 Day Ago ~03/20/16 Atorvastatin [Lipitor] 40 mg PO DAILY 04/15/14 03/21/16 1 Day Ago ~03/20/16 glipiZIDE [glipiZIDE ER] 5 mg PO BID 04/15/14 03/21/16 1 Day Ago ~03/20/16 Amlodipine Besylate/Benazepril 2 cap PO DAILY 03/19/16 03/21/16 1 Day Ago [Amlodipine-Benazepril 5-20 mg] ~03/20/16 Previous Rx's Medication Instructions Recorded Last Taken Type Clopidogrel [Plavix] 75 mg PO QDAY #30 tablet 03/19/16 1 Day Ago Rx ~03/20/16 ISOSORBIDE MONOnitrate [Imdur ER] 30 mg PO QDAY #30 tablet 03/19/16 1 Day Ago Rx ~03/20/16 Metoprolol [Lopressor TAB] 25 mg PO BID #60 tablet 03/19/16 1 Day Ago Rx ~03/20/16 Ciprofloxacin HCl [Ciprofloxacin 500 mg PO BID 3 Days #6 tablet 05/06/18 Unknown Rx TAB] Allergies Allergy/AdvReac Type Severity Reaction Status Date / Time shellfish derived Allergy Severe Swelling Verified 03/19/16 08:43 ED Review of Systems Comment: All other systems reviewed and negative Constitutional: chills, fever. denies: malaise Respiratory: denies: cough Cardiovascular: denies: chest pain ED Past Medical Hx - Past Medical History Previous Medical History?: Yes Hx Hypertension: Yes Hx Heart Attack/AMI: Yes Hx Congestive Heart Failure: No Hx Diabetes: Yes Hx GERD: Yes Hx Renal Disease: Yes (stones) Hx Asthma: No Hx COPD: No Additional medical history: CAD. DDD - Surgical History Hx Coronary Stent: Yes (2010 IFTIKHAR/ 03/19/2016) Hx Open Heart Surgery: Yes Hx Cholecystectomy: Yes Additional Surgical History: Triple bypass - Social History Smoking Status: Former Smoker Substance Use Type: None - Medications Home Medications: Home Medications Medication Instructions Recorded Confirmed Last Taken Type Aspirin [Aspirin BABY CHEW TAB] 81 mg PO DAILY 06/25/13 03/21/16 1 Day Ago History ~03/20/16 Atorvastatin [Lipitor] 40 mg PO DAILY 04/15/14 03/21/16 1 Day Ago History ~03/20/16 glipiZIDE [glipiZIDE ER] 5 mg PO BID 04/15/14 03/21/16 1 Day Ago History ~03/20/16 Amlodipine Besylate/Benazepril 2 cap PO DAILY 03/19/16 03/21/16 1 Day Ago History [Amlodipine-Benazepril 5-20 mg] ~03/20/16 Clopidogrel [Plavix] 75 mg PO QDAY #30 tablet 03/19/16 03/21/16 1 Day Ago Rx ~03/20/16 ISOSORBIDE MONOnitrate [Imdur ER] 30 mg PO QDAY #30 tablet 03/19/16 03/21/16 1 Day Ago Rx ~03/20/16 Metoprolol [Lopressor TAB] 25 mg PO BID #60 tablet 03/19/16 03/21/16 1 Day Ago Rx ~03/20/16 Ciprofloxacin HCl [Ciprofloxacin 500 mg PO BID 3 Days #6 tablet 05/06/18 Unknown Rx TAB] ED Physical Exam - General Limitations: No Limitations General appearance: alert, in no apparent distress - Head Head exam: Present: atraumatic, normocephalic - Eye Eye exam: Present: normal appearance - ENT ENT exam: Present: mucous membranes moist - Neck Neck exam: Present: normal inspection, full ROM - Respiratory Respiratory exam: Present: normal lung sounds bilaterally. Absent: respiratory distress, wheezes, rales, rhonchi - Cardiovascular Cardiovascular Exam: Present: regular rate, normal rhythm, normal heart sounds. Absent: systolic murmur, diastolic murmur, rubs, gallop - GI/Abdominal GI/Abdominal exam: Present: soft, normal bowel sounds. Absent: distended, tenderness, guarding, rebound - Rectal Rectal exam: Present: deferred - Extremities Exam Extremities exam: Present: normal inspection - Back Exam Back exam: Present: normal inspection - Neurological Exam Neurological exam: Present: alert, oriented X3 - Psychiatric Psychiatric exam: Present: normal affect, normal mood - Skin Skin exam: Present: warm, dry, intact, normal color. Absent: rash ED Medical Decision Making - Lab Data Result diagrams: 05/06/18 01:29 05/06/18 01:29 Laboratory Results - last 24 hr 05/06/18 05/06/18 05/06/18 01:22 01:29 01:29 WBC 11.4 H RBC 4.98 Hgb 14.6 Hct 43.5 MCV 87 MCH 29 MCHC 34 RDW 13.6 Plt Count 280 Seg Neutrophils % Snow Removal Supervisor VBG pH Sodium 133 L Potassium 5.0 Chloride 95.5 L Carbon Dioxide 24 Anion Gap 19 BUN 11 Creatinine 0.9 Estimated GFR > 60 BUN/Creatinine Ratio 12 Glucose 467 H POC Glucose 415 H Calcium 9.3 Total Bilirubin 0.70 AST 44 H ALT 46 Alkaline Phosphatase 147 H Total Protein 7.8 Albumin 4.0 Albumin/Globulin Ratio 1.1 Lipase 22 Urine Color Urine Turbidity Urine pH Ur Specific [place] Urine Protein Urine Glucose (UA) Urine Ketones Urine Blood Urine Nitrite Urine Bilirubin Urine Urobilinogen Ur Leukocyte Esterase Urine WBC (Auto) Urine RBC (Auto) U Epithel Cells (Auto) 05/06/18 05/06/18 01:29 Unknown WBC RBC Hgb Hct MCV MCH MCHC RDW Plt Count Seg Neutrophils % VBG pH 7.396 Sodium Potassium Chloride Carbon Dioxide Anion Gap BUN Creatinine Estimated GFR BUN/Creatinine Ratio Glucose POC Glucose Calcium Total Bilirubin AST ALT Alkaline Phosphatase Total Protein Albumin Albumin/Globulin Ratio Lipase Urine Color Yellow Urine Turbidity Clear Urine pH 6.0 Ur Specific [place] 1.033 H Urine Protein 100 mg/dl Urine Glucose (UA) >=500 Urine Ketones Tr Urine Blood Neg Urine Nitrite Neg Urine Bilirubin Neg Urine Urobilinogen < 2.0 Ur Leukocyte Esterase Neg Urine WBC (Auto) < 1.0 Urine RBC (Auto) 2.0 U Epithel Cells (Auto) < 1.0 - Medical Decision Making Mr. Lamar presents with fever diarrhea with multiple sick contacts. No tenderness on abdominal exam. Suspect bacterial infection GI. Prescribed Ciprofloxacin, My colleague will f/u CT A/P results in order to rule out appendicitis or significant acute inflammatory process. ED Disposition Clinical Impression: Ileus, Enteritis, Elevated lactic acid level Hyperglycemia due to type 2 diabetes mellitus Qualifiers: Diabetes mellitus assisted insulin use: without technician terminal and repeater use Qualified Code(s): E11.65 - Type 2 diabetes mellitus with hyperglycemia Abdominal pain Qualifiers: Abdominal location: generalized Qualified Code(s): R10.84 - Generalized abdominal pain Disposition: OP ADMIT IP TO THIS HOSP Is pt being admited?: No Does the pt Need Aspirin: No Condition: Stable Instructions: Food Poisoning (ED), Diabetes Mellitus Type 2 in Adults (ED) Prescriptions: Ciprofloxacin HCl [Ciprofloxacin TAB] 500 mg PO BID 3 Days #6 tablet Referrals: DIONISIO BLACKBURN MD [Primary Care Provider] - 3-5 Days <KATHERINE FLOWERS - Last Filed: 05/06/18 08:50> ED Review of Systems ROS: Stated complaint: ABD PAIN Other details as noted in HPI ED Course Vital Signs 05/06/18 05/06/18 05/06/18 01:12 07:17 07:34 Temperature 100.5 F H 98.7 F Pulse Rate 118 H 97 H Respiratory 18 18 18 Rate Blood Pressure 128/83 108/67 [Left] O2 Sat by Pulse 96 95 95 Oximetry - Reevaluation(s) Reevaluation #1: Patient with quite a bit of fluid/ileus of his bowel. Lactic acid level is slightly elevated. Significant hyperglycemia. Think you would be better off admitted at this point. Have discussed with hospitalist and admitted. Given insulin and Levaquin. 05/06/18 08:48 ED Medical Decision Making - Lab Data Result diagrams: 05/06/18 01:29 05/06/18 01:29 Critical care attestation.: If time is entered above; I have spent that time in minutes in the direct care of this critically ill patient, excluding procedure time. ED Disposition Is pt being admited?: Yes Does the pt Need Aspirin: Yes Time of Disposition: 08:50
[2018-05-06 05:50] LABS: Basophils % (Manual) 0 % (0.0-1.8); Total Cells Counted 100
[2018-05-06 05:54] LABS: Anisocytosis 1+; Ovalocytes 1+; Platelet Estimate Consistent w Auto
[2018-05-06] MEDS ORDERED: HumuLIN R IV ONE (06:09)
[2018-05-06] MEDS ORDERED: LEVAQUIN 750MG/150ML 750 MG/150 ML BAG IV ONE (06:09)
--- NOTE | 2018-05-06 06:20 | Cat Scan Report ---
PROCEDURE: CT ABDOMEN PELVIS W CON TECHNIQUE: Routine axial imaging was obtained of the abdomen and pelvis following the intravenous in jection of iodinated contrast. Sagittal and coronal reconstructions were reviewed. HISTORY: fever epigastric pain diarrhea COMPARISONS: None FINDINGS: The lung bases are negative for infiltrates or effusions. The liver is normal size and reveals diminished attenuation compatible with hepatic steatosis. The ga llbladder has been removed. The biliary tree appears normal. The pancreas, spleen, and adrenal glands appear normal. The kidneys enhance normally. There is no evidence of hydronephrosis. The abdominal a jones is normal in caliber. The portal vein enhances normally. The bowel loops are normal in caliber. There are multiple fluid-filled loops of small bowel as well a s fluid in much of the colon. A mild nonobstructive ileus/enteritis cannot be said. The appendix appe ars normal. There is no evidence of free fluid or adenopathy. In the pelvis the prostate gland and bl adder appear normal. The skeletal structures reveal mild arthritic changes of the lumbar spine. IMPRESSION: Multiple nondistended fluid-filled loops of small bowel and large bowel. The findings are compatible with a nonobstructive ileus/enteritis. Hepatic steatosis. Cholecystectomy.. This document is electronically signed by Yossi Avalos MD., May 06 2018 06:17:59 AM ET
[2018-05-06 06:48] LABS: INR 0.97 (0.87-1.13)
--- NOTE | 2018-05-06 10:42 | History and Physical Report ---
History of Present Illness Date of examination: 05/06/18 Date of admission: 05/06/18 08:50 Chief complaint: Abdominal pains History of present illness: Patient is a 47 yo man with a history CAD s/p cardiac shents/CABG, constipation (he is scheduled for colonoscopy next month with Dr. Riojas), hypertension, NIDDM, GERD, Kidney Stones and DDD who presented to [facility] ED with severe worsening throbbing, nonradiating epigastric abdominal pains without relieving or aggravating factors associated with N/V/fevers/chills that started around 8pm on 05/05/18. He reports sick contract with kids at home. Everyone has a "stomach bug except ." He is being admitted because of sepsis enteritis. PMH: as hpi PSH: lap cholecystectomy, cabg, cardiac shents SH: quit tob smoking 3 years ago, no etoh, no illegal drugs FH: hypertension, premature heart disease ROS: Constitutional: + fever ENT: denies: throat or neck pain Respiratory: denies: cough, shortness of breath Cardiovascular: denies: chest pain Endocrine: denies unexplained weight loss or gain Gastrointestinal: +abdominal pain, nausea Genitourinary: denies: dysuria Rectal: denies no incontinence, no bleeding, no itching, no discharge Musculoskeletal: denies swelling, myaglia, muscle weakness Skin: denies: rash Neurological: denies: headache Hematological/Lymphatic: denies: easy bleeding or easy bruising Allergic/Immunologic: no urticaria, no allergic rhinitis, no anaphylaxis Psych: denies sadness or hopelessness, SI/HI Medications and Allergies Allergies Allergy/AdvReac Type Severity Reaction Status Date / Time shellfish derived Allergy Severe Swelling Verified 03/19/16 08:43 Home Medications Medication Instructions Recorded Confirmed Last Taken Type Aspirin 81 mg PO QDAY 05/06/18 05/06/18 Unknown History AtorvaSTATin [Lipitor] 40 mg PO QHS 05/06/18 05/06/18 Unknown History Ergocalciferol [Vitamin D2] 1 cap PO QWEEK 05/06/18 05/06/18 Unknown History Losartan [Cozaar] 12.5 mg PO QDAY 05/06/18 05/06/18 Unknown History Metformin HCl 1,000 mg PO QDAY 05/06/18 05/06/18 Unknown History amLODIPine [Norvasc] 5 mg PO DAILY 05/06/18 05/06/18 Unknown History glipiZIDE [Glipizide] 10 mg PO QDAY 05/06/18 05/06/18 Unknown History Exam - Physical Exam Narrative exam: Gen: WDWN, NAD, Awake, Alert, Orientated HEENT: NCAT, EOMI, PERRL, OP Clear Neck: supple, no adenopathy, no thyromegaly, no JVD CVS/Heart: RRR, normal S1S2, pulses present bilaterally Chest/Lungs: CTA B, Symmetrical chest expansion, good air entry bilaterally GI/Abdomen: soft, NTND, good bowel sounds, no guarding or rebound /Bladder: no suprapubic tenderness, no CVA or paraspinal tenderness Extermity/Skin: no c/c/e, no obvious rash MSK: FROM x 4 Neuro: CN 2-12 grossly intact, no new focal deficits Psych: calm - Constitutional Vitals: Temp Pulse Resp BP Pulse Ox 99.2 F 97 H 19 118/73 96 05/06/18 08:54 05/06/18 08:54 05/06/18 08:54 05/06/18 08:54 05/06/18 08:54 Results - Labs CBC & Chem 7: 05/07/18 04:58 05/07/18 04:58 Labs: Abnormal lab results 05/06/18 05/06/18 05/06/18 Range/Units 01:22 01:29 01:29 WBC 11.4 H (4.5-11.0) K/mm3 Seg Neuts % (Manual) 92.0 H (40.0-70.0) % Lymphocytes % (Manual) 3.0 L (13.4-35.0) % Seg Neutrophils # Man 10.5 H (1.8-7.7) K/mm3 Lymphocytes # (Manual) 0.3 L (1.2-5.4) K/mm3 Eosinophils # (Manual) 0.5 H (0.0-0.4) K/mm3 Sodium 133 L (137-145) mmol/L Chloride 95.5 L (98-107) mmol/L Glucose 467 H (75-100) mg/dL POC Glucose 415 H (70-105) Lactic Acid (0.7-2.0) mmol/L AST 44 H (5-40) units/L Alkaline Phosphatase 147 H (35-129) units/L Ur Specific [place] (1.003-1.030) 05/06/18 05/06/18 05/06/18 Range/Units 06:17 07:53 Unknown WBC (4.5-11.0) K/mm3 Seg Neuts % (Manual) (40.0-70.0) % Lymphocytes % (Manual) (13.4-35.0) % Seg Neutrophils # Man (1.8-7.7) K/mm3 Lymphocytes # (Manual) (1.2-5.4) K/mm3 Eosinophils # (Manual) (0.0-0.4) K/mm3 Sodium (137-145) mmol/L Chloride (98-107) mmol/L Glucose (75-100) mg/dL POC Glucose 236 H (70-105) Lactic Acid 2.10 H* (0.7-2.0) mmol/L AST (5-40) units/L Alkaline Phosphatase (35-129) units/L Ur Specific [place] 1.033 H (1.003-1.030) Assessment and Plan Patient is a 47 yo man with a history CAD s/p cardiac shents/CABG, constipation (he is scheduled for colonoscopy next month with Dr. Riojas), hypertension, NIDDM, GERD, Kidney Stones and DDD who presented to [facility] ED with severe worsening throbbing, nonradiating epigastric abdominal pains without relieving or aggravating factors associated with N/V/fevers/chills that started around 8pm on 05/05/18. He reports sick contract with kids at home. Everyone has a "stomach bug except ." He is being admitted because of sepsis enteritis. CT abd/pelvis with contrast reviewed -AGE/enteritis: treat with ABX, IVF -Ileus: downgrade diet -Sepsis enteritis, poa -Dehydration: IVF -NIDDM: SSI, ADA -Hypertension: low salt diet
[2018-05-06] MEDS ORDERED: ZOFRAN IV PRN (11:43)
[2018-05-06] MEDS ORDERED: REGLAN IV PRN (11:43)
[2018-05-06] MEDS ORDERED: PROTONIX IV SCH (12:00)
[2018-05-06 13:49] LABS: Bacteria,Urine 1+ /HPF (Negative); Bilirubin,Urine NEG (Negative); Blood,Urine NEG (Negative); Color,Urine Yellow (Yellow); Mucus,Urine FEW /HPF; WBC,Urine < 1.0 /HPF (0.0-6.0)
[2018-05-06] MEDS: NACL 0.9% 1000 ML 1,000 ML IV SCH (16:06)
[2018-05-06] MEDS: PEPCID IV SCH ×2 (16:06→21:34)
[2018-05-06] MEDS ORDERED: D50W (25GM) Syringe IV PRN (22:46)
[2018-05-06] MEDS: HumaLOG SUB-Q SCH (23:57)
[2018-05-07 05:30] LABS: Hematocrit 39.1 % (35.5-45.6); Hemoglobin 13.3 gm/dl (11.8-15.2); Mean Corpuscular HGB Conc 34 % (32-34); Mean Corpuscular Volume 87 fl (84-94); Platelet Count 240 K/mm3 (140-440); Red Blood Count 4.49 M/mm3 (3.65-5.03); Red Cell Distribution Width 13.9 % (13.2-15.2)
[2018-05-07 05:49] LABS: BUN/Creatinine Ratio 11; Blood Urea Nitrogen 8 mg/dL (9-20); Calcium 7.8 mg/dL (8.4-10.2); Hemolysis Index 5
[2018-05-07] MEDS: LEVAQUIN 500MG/100ML 500 MG/100 ML BAG IV SCH (08:36)
[2018-05-07] MEDS: HumaLOG SUB-Q SCH ×4 (08:37→21:16)
[2018-05-07] MEDS: PEPCID IV SCH (09:30)
[2018-05-07] MEDS ORDERED: IMODIUM A-D PO ONE ×2 (13:25→19:00)
[2018-05-07] MEDS ORDERED: NON-FORMULARY (Metformin Hcl [Metformin Hcl] 1,000 MG) PO SCH (13:30)
--- NOTE | 2018-05-07 13:34 | Progress Note ---
Assessment and Plan Assessment and plan: Patient is a 47 yo man with a history CAD s/p cardiac shents/CABG, constipation (he is scheduled for colonoscopy next month with Dr. Riojas), hypertension, NIDDM, GERD, Kidney Stones and DDD who presented to [facility] ED with severe worsening throbbing, nonradiating epigastric abdominal pains without relieving or aggravating factors associated with N/V/fevers/chills that started around 8pm on 05/05/18. He reports sick contract with kids at home. Everyone has a "stomach bug except ." He is being admitted because of sepsis enteritis. CT abd/pelvis with contrast reviewed -AGE/enteritis/Infectious Diarrhea suspected, the n/v resolved, diarrhea improving on abx, no recent abx exposure and stool is becoming formed today, therefore, c. diffe not sent: treat with ABX, IVF, add Imodium, if he has 3 or more watery stools today will send for c. diffe -Ileus, resolved: advance diet -Sepsis enteritis, poa; treat with abx -Dehydration: IVF -NIDDM: SSI, ADA, check a1c -Hypertension: low salt diet History Interval history: Patient seen and examined. Follow up fevers which has resolved. He diarrhea, bm ~9x yesterday. Once today. No more n/v, asking for advancement of diet. Hospitalist Physical - Physical exam Narrative exam: Gen: WDWN, NAD, Awake, Alert, Orientated HEENT: NCAT, EOMI, PERRL, OP Clear Neck: supple, no adenopathy, no thyromegaly, no JVD CVS/Heart: RRR, normal S1S2, pulses present bilaterally Chest/Lungs: CTA B, Symmetrical chest expansion, good air entry bilaterally GI/Abdomen: soft, NTND, good bowel sounds, no guarding or rebound /Bladder: no suprapubic tenderness, no CVA or paraspinal tenderness Extermity/Skin: no c/c/e, no obvious rash MSK: FROM x 4 Neuro: CN 2-12 grossly intact, no new focal deficits Psych: calm - Constitutional Vitals: Temp Pulse Resp BP Pulse Ox 98.2 F 83 20 115/72 97 05/07/18 06:20 05/07/18 06:20 05/07/18 06:20 05/07/18 06:20 05/07/18 06:20 Results - Labs CBC & Chem 7: 05/07/18 04:58 05/07/18 04:58 Labs: Laboratory Last Values WBC 5.4 K/mm3 (4.5-11.0) 05/07/18 04:58 RBC 4.49 M/mm3 (3.65-5.03) 05/07/18 04:58 Hgb 13.3 gm/dl (11.8-15.2) 05/07/18 04:58 Hct 39.1 % (35.5-45.6) 05/07/18 04:58 MCV 87 fl (84-94) 05/07/18 04:58 MCH 30 pg (28-32) 05/07/18 04:58 MCHC 34 % (32-34) 05/07/18 04:58 RDW 13.9 % (13.2-15.2) 05/07/18 04:58 Plt Count 240 K/mm3 (140-440) 05/07/18 04:58 Add Manual Diff Complete 05/06/18 01:29 Total Counted 100 05/06/18 01:29 Seg Neutrophils % Web Manager 05/06/18 01:29 Seg Neuts % (Manual) 92.0 % (40.0-70.0) H 05/06/18 01:29 Band Neutrophils % 0 % 05/06/18 01:29 Lymphocytes % (Manual) 3.0 % (13.4-35.0) L 05/06/18 01:29 Reactive Lymphs % (Man) 0 % 05/06/18 01:29 Monocytes % (Manual) 1.0 % (0.0-7.3) 05/06/18 01:29 Eosinophils % (Manual) 4.0 % (0.0-4.3) 05/06/18 01:29 Basophils % (Manual) 0 % (0.0-1.8) 05/06/18 01:29 Metamyelocytes % 0 % 05/06/18 01:29 Myelocytes % 0 % 05/06/18 01:29 Promyelocytes % 0 % 05/06/18 01:29 Blast Cells % 0 % 05/06/18 01:29 Nucleated RBC % Not Reportable 05/06/18 01:29 Seg Neutrophils # Man 10.5 K/mm3 (1.8-7.7) H 05/06/18 01:29 Band Neutrophils # 0.0 K/mm3 05/06/18 01:29 Lymphocytes # (Manual) 0.3 K/mm3 (1.2-5.4) L 05/06/18 01:29 Abs React Lymphs (Man) 0.0 K/mm3 05/06/18 01:29 Monocytes # (Manual) 0.1 K/mm3 (0.0-0.8) 05/06/18 01:29 Eosinophils # (Manual) 0.5 K/mm3 (0.0-0.4) H 05/06/18 01:29 Basophils # (Manual) 0.0 K/mm3 (0.0-0.1) 05/06/18 01:29 Metamyelocytes # 0.0 K/mm3 05/06/18 01:29 Myelocytes # 0.0 K/mm3 05/06/18 01:29 Promyelocytes # 0.0 K/mm3 05/06/18 01:29 Blast Cells # 0.0 K/mm3 05/06/18 01:29 WBC Morphology Not Reportable 05/06/18 01:29 Hypersegmented Neuts Not Reportable 05/06/18 01:29 Hyposegmented Neuts Not Reportable 05/06/18 01:29 Hypogranular Neuts Not Reportable 05/06/18 01:29 Smudge Cells Not Reportable 05/06/18 01:29 Toxic Granulation Not Reportable 05/06/18 01:29 Toxic Vacuolation Not Reportable 05/06/18 01:29 Dohle Bodies Not Reportable 05/06/18 01:29 Pelger-Huet Anomaly Not Reportable 05/06/18 01:29 Alfonzo Rods Not Reportable 05/06/18 01:29 Platelet Estimate Consistent w auto 05/06/18 01:29 Clumped Platelets Not Reportable 05/06/18 01:29 Plt Clumps, EDTA Not Reportable 05/06/18 01:29 Large Platelets Not Reportable 05/06/18 01:29 Giant Platelets Not Reportable 05/06/18 01:29 Platelet Satelliting Not Reportable 05/06/18 01:29 Plt Morphology Comment Not Reportable 05/06/18 01:29 RBC Morphology Not Reportable 05/06/18 01:29 Dimorphic RBCs Not Reportable 05/06/18 01:29 Polychromasia Not Reportable 05/06/18 01:29 Hypochromasia Not Reportable 05/06/18 01:29 Poikilocytosis Not Reportable 05/06/18 01:29 Anisocytosis 1+ 05/06/18 01:29 Microcytosis Not Reportable 05/06/18 01:29 Macrocytosis Not Reportable 05/06/18 01:29 Spherocytes Not Reportable 05/06/18 01:29 Pappenheimer Bodies Not Reportable 05/06/18 01:29 Sickle Cells Not Reportable 05/06/18 01:29 Target Cells Not Reportable 05/06/18 01:29 Tear Drop Cells Not Reportable 05/06/18 01:29 Ovalocytes 1+ 05/06/18 01:29 Helmet Cells Not Reportable 05/06/18 01:29 Olea-Smoot Bodies Not Reportable 05/06/18 01:29 [place] Rings Not Reportable 05/06/18 01:29 Ajith Cells Not Reportable 05/06/18 01:29 Bite Cells Not Reportable 05/06/18 01:29 Crenated Cell Not Reportable 05/06/18 01:29 Elliptocytes Not Reportable 05/06/18 01:29 Acanthocytes (Spur) Not Reportable 05/06/18 01:29 Rouleaux Not Reportable 05/06/18 01:29 Hemoglobin C Crystals Not Reportable 05/06/18 01:29 Schistocytes Not Reportable 05/06/18 01:29 Malaria parasites Not Reportable 05/06/18 01:29 Fernando Bodies Not Reportable 05/06/18 01:29 Hem Pathologist Commnt No 05/06/18 01:29 PT 13.5 Sec. (12.2-14.9) 05/06/18 06:17 INR 0.97 (0.87-1.13) 05/06/18 06:17 APTT 25.0 Sec. (24.2-36.6) 05/06/18 06:17 VBG pH 7.396 (7.320-7.420) 05/06/18 01:29 Sodium 139 mmol/L (137-145) 05/07/18 04:58 Potassium 3.7 mmol/L (3.6-5.0) D 05/07/18 04:58 Chloride 103.8 mmol/L (98-107) 05/07/18 04:58 Carbon Dioxide 24 mmol/L (22-30) 05/07/18 04:58 Anion Gap 15 mmol/L 05/07/18 04:58 BUN 8 mg/dL (9-20) L 05/07/18 04:58 Creatinine 0.7 mg/dL (0.8-1.5) L 05/07/18 04:58 Estimated GFR > 60 ml/min 05/07/18 04:58 BUN/Creatinine Ratio 11 % 05/07/18 04:58 Glucose 235 mg/dL (75-100) H 05/07/18 04:58 POC Glucose 250 (70-105) H 05/07/18 11:09 Lactic Acid 1.60 mmol/L (0.7-2.0) 05/06/18 08:14 Calcium 7.8 mg/dL (8.4-10.2) L D 05/07/18 04:58 Total Bilirubin 0.70 mg/dL (0.1-1.2) 05/06/18 01:29 AST 44 units/L (5-40) H 05/06/18 01:29 ALT 46 units/L (7-56) 05/06/18 01:29 Alkaline Phosphatase 147 units/L (35-129) H 05/06/18 01:29 NT-Pro-B Natriuret Pep 100.1 pg/mL (0-450) 05/06/18 06:17 Total Protein 7.8 g/dL (6.3-8.2) 05/06/18 01:29 Albumin 4.0 g/dL (3.9-5) 05/06/18 01:29 Albumin/Globulin Ratio 1.1 % 05/06/18 01:29 Lipase 22 units/L (13-60) 05/06/18 01:29 Urine Color Yellow (Yellow) 05/06/18 Unknown Urine Turbidity Clear (Clear) 05/06/18 Unknown Urine pH 6.0 (5.0-7.0) 05/06/18 Unknown Ur Specific [place] 1.033 (1.003-1.030) H 05/06/18 Unknown Urine Protein 100 mg/dl mg/dL (Negative) 05/06/18 Unknown Urine Glucose (UA) >=500 mg/dL (Negative) 05/06/18 Unknown Urine Ketones Tr mg/dL (Negative) 05/06/18 Unknown Urine Blood Neg (Negative) 05/06/18 Unknown Urine Nitrite Neg (Negative) 05/06/18 Unknown Urine Bilirubin Neg (Negative) 05/06/18 Unknown Urine Urobilinogen < 2.0 mg/dL (<2.0) 05/06/18 Unknown Ur Leukocyte Esterase Neg (Negative) 05/06/18 Unknown Urine WBC (Auto) < 1.0 /HPF (0.0-6.0) 05/06/18 Unknown Urine RBC (Auto) 2.0 /HPF (0.0-6.0) 05/06/18 Unknown U Epithel Cells (Auto) < 1.0 /HPF (0-13.0) 05/06/18 Unknown Urine Bacteria (Auto) 1+ /HPF (Negative) 05/06/18 13:12 Urine Mucus Few /HPF 05/06/18 13:12
[2018-05-07] MEDS: FLAGYL PO SCH ×2 (14:43→21:01)
[2018-05-07] MEDS: GLUCOPHAGE PO SCH (14:43)
[2018-05-07] MEDS: GLUCOTROL PO SCH (14:43)
[2018-05-07] MEDS: PROTONIX PO SCH (14:45)
[2018-05-07] MEDS: HEPARIN SUB-Q SCH ×2 (14:47→21:04)
[2018-05-07] MEDS: NACL 0.9% 1000 ML 1,000 ML IV SCH ×2 (21:00)
[2018-05-08] MEDS: FLAGYL PO SCH (05:59)
[2018-05-08] MEDS: NACL 0.9% 1000 ML 1,000 ML IV SCH (06:01)
[2018-05-08] MEDS: HumaLOG SUB-Q SCH ×2 (08:00→11:30)
[2018-05-08] MEDS: LEVAQUIN 500MG/100ML 500 MG/100 ML BAG IV SCH (08:00)
[2018-05-08] MEDS: PROTONIX PO SCH (09:52)
[2018-05-08] MEDS: GLUCOPHAGE PO SCH (09:54)
[2018-05-08] MEDS: GLUCOTROL PO SCH (09:55)
[2018-05-08] MEDS: HEPARIN SUB-Q SCH (09:55)
[2018-05-08] MEDS ORDERED: COZAAR PO SCH (10:00)
[2018-05-08] MEDS ORDERED: BABY ASPIRIN PO SCH (10:00)
[2018-05-08] MEDS ORDERED: NORVASC PO SCH (10:00)
[2018-05-08 11:58] VITALS: BP 143/82
--- NOTE | 2018-05-08 12:18 | Discharge Summary ---
Providers - Providers Date of Admission: 05/06/18 08:50 Date of discharge: 05/08/18 Attending physician: MARLENA NORMAN Primary care physician: DIONISIO BLACKBURN Hospitalization Condition: Stable Hospital course: Patient is a 47 yo man with a history CAD s/p cardiac shents/CABG, constipation (he is scheduled for colonoscopy next month with Dr. Riojas), hypertension, NIDDM, GERD, Kidney Stones and DDD who presented to [facility] ED with severe worsening throbbing, nonradiating epigastric abdominal pains without relieving or aggravating factors associated with N/V/fevers/chills that started around 8pm on 05/05/18. He reports sick contract with kids at home. Everyone has a "stomach bug except ." He is being admitted because of sepsis enteritis. CT abd/pelvis with contrast reviewed -AGE/enteritis/Infectious Diarrhea suspected, the n/v resolved, diarrhea improving on abx, no recent abx exposure and stool is becoming formed today, therefore, c. diffe not sent: treat with ABX, IVF, add Imodium, if he has 3 or more watery stools today will send for c. diffe -Ileus, resolved: advance diet -Sepsis enteritis, poa; treat with abx -Dehydration: IVF -NIDDM: SSI, ADA, check a1c -Hypertension: low salt diet Disposition: TO HOME OR SELFCARE Time spent for discharge: 31 minutes Core Measure Documentation - Palliative Care Palliative Care/ Comfort Measures: Not Applicable - Core Measures Any of the following diagnoses?: none - VTE Discharge Requirements Deep Vein Thrombosis/Pulmonary Embolism Present on Admission: No Has pt received <5 days of overlap therapy or INR<2.0: No Anticoagulant overlap therapy prescribed at discharge: No Contraindication No Overlap Therapy order at DC: Not Indicated Exam - Physical Exam Narrative exam: Gen: WDWN, NAD, Awake, Alert, Orientated HEENT: NCAT, EOMI, PERRL, OP Clear Neck: supple, no adenopathy, no thyromegaly, no JVD CVS/Heart: RRR, normal S1S2, pulses present bilaterally Chest/Lungs: CTA B, Symmetrical chest expansion, good air entry bilaterally GI/Abdomen: soft, NTND, good bowel sounds, no guarding or rebound /Bladder: no suprapubic tenderness, no CVA or paraspinal tenderness Extermity/Skin: no c/c/e, no obvious rash MSK: FROM x 4 Neuro: CN 2-12 grossly intact, no new focal deficits Psych: calm - Constitutional Vitals: Temp Pulse Resp BP Pulse Ox 98.5 F 77 18 143/82 97 05/08/18 11:31 05/08/18 11:31 05/08/18 11:31 05/08/18 11:31 05/08/18 11:31 Plan Activity: other (no strenous activity until cleared by PCP) Diet: low salt, diabetic Special Instructions: record daily BP diary, record blood sugar diary Follow up with: DIONISIO BLACKBURN MD [Primary Care Provider] - 3-5 Days Prescriptions: metroNIDAZOLE [Flagyl] 500 mg PO Q8HR 3 Days tablet levoFLOXacin [Levaquin TAB] 500 mg PO QDAY #2 tablet
[2018-05-14] MEDS ORDERED: VITAMIN D2 PO SCH (10:00)
== END 2018-05-08 14:55 | disposition home or self-care (01) | DRG 872 ==
LOC: ED 00:25 → 3A 08:50
PROVIDERS: ADMIT Internal Medicine; ATTEND Internal Medicine
DX: A41.9 Sepsis, unspecified organism (principal); K56.7 Ileus, unspecified; E11.65 Type 2 diabetes mellitus with hyperglycemia; K52.9 Noninfective gastroenteritis and colitis, unspecified; I10 Essential (primary) hypertension; K21.9 Gastro-esophageal reflux disease without esophagitis; E86.0 Dehydration; I25.10 Atherosclerotic heart disease of native coronary artery without angina pectoris; Z95.5 Presence of coronary angioplasty implant and graft; Z95.1 Presence of aortocoronary bypass graft; Z87.442 Personal history of urinary calculi; Z79.4 Long term (current) use of insulin; Z90.49 Acquired absence of other specified parts of digestive tract; Z87.891 Personal history of nicotine dependence; Z82.49 Family history of ischemic heart disease and other diseases of the circulatory system; Z91.013 Allergy to seafood; Z79.82 Long term (current) use of aspirin; Z79.899 Other long term (current) drug therapy; I25.2 Old myocardial infarction
CPT/HCPCS: 36415; 74177; 80048; 80053; 81001; 82140; 82270; 82805; 82962; 83036; 83690; 83880; 85007; 85025; 85027; 85610; 85730; 87040; 87045; 93005; 93010; G0378; A9270-GY; J1644; J1815; J1956; J2270; J2405; J7030; Q9967